=== PATIENT | female | born 1955 | race Caucasian/White ===

== ENCOUNTER 2021-07-19 16:21 | Emergency (ER) | payer MEDICARE, SELFPAY ==
[2021-07-19 16:22] VITALS: BP 118/66; PULSE 109; RESP 15; TEMP 36.9; O2SAT 99; BMI 28.4
--- NOTE | 2021-07-19 16:44 | EDS_ITS ---
HPI History of Present Illness Chief Complaint: General Illness Informant: patient Narrative Narrative: Patient is a 65-year-old female with history of reflux and what sounds like a Niesen fundoplication surgery presenting with headache, lightheadedness, abdominal pain and generalized malaise. Patient states she is been having the symptoms for about 3 weeks and has been worse over the past week. Patient went to [facility] 9 days ago where she had blood work and received 2 L of IV fluids as well as some IV antibiotics. She was discharged home with 10 pills of antibiotics. She believes they are Keflex. She states the antibiotic did not seem to help and really tore her stomach up. Patient states that she vomits every time she eats is concerned she is dehydrated again. Her boss was worried she might have pneumonia and sent home from work to be ev aluated further today. Patient states he has had abdominal discomfort and feels like her stomach is in knots. It is generalized. Patient states has had regular bowel movements and denies any diarrhea, black or blood in her stool. She had a negative COVID test last week. Denies any chest pain or difficulty breathing. No other acute complaints at this time. PFSH PFSH Home Medications glipizide 20 mg PO QHS 07/19/21 [History Last Taken Unknown] lisinopril 10 mg PO QHS 07/19/21 [History Last Taken Unknown] metformin 2,000 mg PO QHS 07/19/21 [History Last Taken Unknown] ondansetron HCl 4 mg PO Q6H PRN #14 tab 07/19/21 [Rx Last Taken Unknown] pioglitazone 30 mg PO QHS 07/19/21 [History Last Taken Unknown] rosuvastatin 20 mg PO QHS 07/19/21 [History Last Taken Unknown] sulfamethoxazole-trimethoprim [Bactrim DS] 1 tab PO BID #14 tab 07/19/21 [Rx Last Taken Unknown] Allergy/AdvReac Type Severity Reaction Status Date / Time No Known Allergies Allergy Verified 07/19/21 16:24 Social History Smoking Status: Never smoker ROS ROS ED Constitutional Constitutional ED: Reports other Details: lightheaded ; Denies chills or fever(s) Eyes Eyes: Denies change in vision ENT ENT ED: Denies rhinorrhea or sore throat Cardiovascular Cardiovascular: Denies chest pain or palpitations Respiratory/Chest Respiratory/Chest: Reports dyspnea; Denies cough Gastrointestinal Gastrointestinal: Reports abdominal pain, nausea and vomiting; Denies constipation, diarrhea or melena Genitourinary Genitourinary ED: Denies dysuria, hematuria or urinary frequency Musculoskeletal Musculoskeletal: Denies arthralgias, myalgias or neck pain Integumentary Denies rash Neurologic Neurologic: Reports headache(s); Denies paresthesias or weakness Psychiatric Psychiatric: Denies anxiety or depression EXAM Physical Exam Const Vital Signs: 07/19/21 16:22 07/19/21 16:33 07/19/21 18:34 Temperature 98.4 F Temperature Source Temporal Pulse Rate 109 H 92 Respiratory Rate 15 16 Respiratory Effort Normal Non-Labored Respiratory Pattern Normal Blood Pressure 118/66 110/59 L Blood Pressure Mean 83 76 Pulse Ox 99 97 Oxygen Delivery Method Room Air Room Air Positive well nourished and well developed General Appearance ED: well developed and NAD HEENT Reports TM's clear and moist mucous membranes Negative for trauma or tenderness Tympanic Membrane ED: Yes TM's clear Eyes PERRL and EOMs intact bilaterally Neck supple and no JVD Neck Narrative: normal ROM, no meningeal signs Chest Wall inspection of chest normal Resp normal respiratory effort and clear to auscultation bilaterally Auscultation: Negative for wheezes Cardio regular rate, regular rhythm and no murmurs GI normal to inspection, nondistended, normoactive bowel sounds Back/Spine no CVA tenderness Extremity normal to inspection General Extremety ED: Negative for edema or tenderness General Extremity: Negative for edema Neuro oriented x3 Sensorium / Orientation: alert Motor Exam: Negative for general weakness Psych mental status grossly normal Skin no rashes or lesions noted and no wounds MDM MDM MDM Narrative Medical decision making narrative: Patient is evaluated for generalized malaise and abdominal discomfort. She has associated nausea. Patient appears nontoxic and in no acute distress. Patient was seen at [facility] 1 week ago for the same complaints. At that time she was discharged on Keflex for UTI as well as Zofran. Hemoglobin is 11.8 which is stable from a week ago as well as a creatinine of 1.86. Urinalysis shows glucose urea as well as 500 leukoesterase, 25-50 white blood cells and 1+ bacteria. Urine culture will be sent. There does not appear to be a culture from her last ER visit. She will be started on Bactrim and given a refill of her Zofran. Patient is given Toradol and IV fluids in the ER. She seems to be feeling better. She is counseled return precautions. After patient was discharged lab resulted a glucose of 594.She had normal anion gap and normal bicarb. Calculated serum osmolality 306. Patient does not meet criteria for DKA or HHNK. While she was discharged for her glucose was resulted this would not have changed to her disposition. Patient is a known diabetic. She was given a liter of fluid which should improve her glucose. Lab Data Attestation: I reviewed the patient's lab results. Labs: Laboratory Results - last 24 hr 07/19/21 07/19/21 07/19/21 17:00 17:00 18:00 WBC 6.3 RBC 4.29 Hgb 11.8 L Hct 36.5 L MCV 85.1 MCH 27.5 MCHC 32.3 RDW Std Deviation 41.5 RDW Coeff of Aung 13.4 Plt Count 291 MPV 11.0 Immature Gran % (Auto) 0.300 Neut % (Auto) 60.2 Lymph % (Auto) 29.7 Mobile % (Auto) 7.4 Eos % (Auto) 1.9 Baso % (Auto) 0.5 Absolute Neuts (auto) 3.8 Absolute Lymphs (auto) 1.88 Nucleated RBC % 0 Sodium 132 L Potassium 4.5 Chloride 96 L Carbon Dioxide 26.0 Anion Gap 10 BUN 24 H Creatinine 1.86 H Estim Creat Clear Calc 23.21 Est GFR (MDRD) Af Amer 35 L Est GFR (MDRD) Non-Af 29 L BUN/Creatinine Ratio 12.9 Glucose 594 H* Calcium 9.7 Total Bilirubin 0.30 AST 15 ALT 29 Alkaline Phosphatase 86 Total Protein 7.8 Albumin 3.8 Globulin 4.0 Albumin/Globulin Ratio 1.0 Lipase 292 Urine Color Yellow Urine Clarity Clear Urine pH 6.0 Ur Specific [place] 1.010 Urine Protein Negative Urine Glucose (UA) 1000 H Urine Ketones Negative Urine Occult Blood Negative Urine Nitrite Negative Urine Bilirubin Negative Urine Urobilinogen Normal Ur Leukocyte Esterase 500 H Urine RBC 0 SEEN Urine WBC 25-50 SEEN Ur Squamous Epith Cells 0-5 SEEN Urine Bacteria 1+ Urine Mucus 0 SEEN Radiography Diagnostic Testing: Clinical Impression(s) from Imaging Studies Chest X-Ray 07/19/21 17:25 IMPRESSION: Minimal medial right basilar atelectasis or fibrosis. Mild biapical pleural thickening. Surgical clips below left hemidiaphragm. Electronically Signed: Fco Whiting MD, DAVIDA at 18:01 EDT Reading Location ID and State: [facility] / [place] Tel , Service support , Discharge Plan Triage Chief Complaint: General Illness ED Provider: Nell Garcia Dx/Rx/DC Orders Clinical Impression: Acute UTI, Malaise and fatigue, Nausea Instructions: ED CYSTITIS Female Adult Prescriptions: New sulfamethoxazole-trimethoprim [Bactrim DS] 800-160 mg tablet 1 tab PO BID Qty: 14 RF: 0 ondansetron HCl 4 mg tablet 4 mg PO Q6H PRN (Reason: nausea and vomiting) Qty: 14 RF: 0 No Action pioglitazone 15 mg tablet 30 mg PO QHS RF: 0 glipizide 10 mg tablet extended release 24hr 20 mg PO QHS RF: 0 lisinopril 10 mg tablet 10 mg PO QHS RF: 0 metformin 500 mg tablet extended release 24 hr 2,000 mg PO QHS RF: 0 rosuvastatin 20 mg tablet 20 mg PO QHS RF: 0 Primary Care Provider: Masha Covington Referrals: Masha Covington PA [Primary Care Provider] - Activity Restrictions/Additional Instructions: Your creatinine today was 1.86 and your hemoglobin is 11.8. Please follow-up with your primary care doctor for these. As you had a negative COVID PCR test last week we do not need to repeat it today. Disposition Disposition: Home, Self Care Discharge Date/Time: 07/19/21 19:27
[2021-07-19 17:12] LABS: Absolute Lymphocyte Count 1.88 X10^3/uL (0.83-4.51); Absolute Neutrophil Count 3.8 X10^3/uL (2.0-7.7); Basophil# 0.03 X10^3/uL; Basophil% 0.5 % (0-1); Eosinophil# 0.12 X10^3/uL; Eosinophils% 1.9 % (0-5); Hematocrit 36.5 % (37-47); Hemoglobin 11.8 g/dL (12.0-15.0); Lymphocyte # 1.88 X10^3/ul (0.83-4.51); Lymphocyte % 29.7 % (19-41); Mean Corp Hgb Conc 32.3 g/dL (32-36); Mean Corpuscular Hgb 27.5 pg (27.0-32.0); Mean Corpuscular Volume 85.1 fL (81-99); Monocyte# 0.47 X10^3/uL; Monocyte% 7.4 % (0-10); NRBC Flagged by Analyzer 0 % (0-5); Neutrophil % 60.2 % (47-70); Platelet Count 291 K/mm3 (150-450); RBC Distribution Width CV 13.4 % (11.6-14.6); RBC Distribution Width SD 41.5 fl (35.1-43.9); Red Blood Count 4.29 M/mm3 (4.2-5.4); White Blood Count 6.3 K/mm3 (4.4-11.0)
[2021-07-19] MEDS: Ketorolac 15 MG/ML Vial IV (17:12)
[2021-07-19] MEDS: 0.9% Normal Saline 1,000 ML 1000 ML IV (17:12)
--- NOTE | 2021-07-19 17:25 | RAD_ITS ---
STUDY: X-RAY CHEST REASON FOR EXAM: Female, 65 years old. shortness of breath TECHNIQUE: Frontal and lateral COMPARISON: None. FINDINGS: The lungs minimal medial right basilar atelectasis or fibrosis. Mild biapical pleural thickening. Normal size heart. Normal mediastinum and sylwia. Normal visualized pulmonary arteries. Normal visualized aortic arch and descending thoracic aorta. Normal visualized thoracic spine. Normal visualized ribs, clavicles, and shoulders. Surgical clips are seen below the left hemidiaphragm. RAD/Chest PA and Lateral IMPRESSION: Minimal medial right basilar atelectasis or fibrosis. Mild biapical pleural thickening. Surgical clips below left hemidiaphragm. Electronically Signed: Fco Whiting MD, DAVIDA at 18:01 EDT ,
[2021-07-19 17:28] LABS: AST(SGOT) 15 U/L (15-37); Alanine Aminotransfer ALT/SGPT 29 U/L (13-56); Albumin, Serum 3.8 g/dL (3.2-5.0); Alkaline Phosphatase 86 U/L (45-117); Anion Gap 10 (5-15); BUN 24 mg/dL (7-18); BUN/Creat Ratio 12.9 RATIO (10-20); Calcium,Total 9.7 mg/dL (8.5-10.1); Chloride 96 mmol/L (98-107); Creatinine, Serum 1.86 mg/dL (0.55-1.02); EST Glomerular Filtration Rate 29 mL/min (>60); Est Glom Filt Rate - Afr Amer 35 mL/min (>60); Estimated Creatinine Clearance 23.21 ml/min; Lipase 292 U/L (73-393); Potassium 4.5 mmol/L (3.5-5.1); Protein, Total 7.8 g/dL (6.4-8.2); Sodium Level 132 mmol/L (136-145)
[2021-07-19 18:10] LABS: Mucous, Urine 0 SEEN /hpf (<or=2+); Red Blood Cells-Urine 0 SEEN /hpf (0-5)
[2021-07-19 18:11] LABS: Color, Urine Yellow (Yellow); Glucose, Dipstick 1000 mg/dl (Normal); Ketone-Dipstick Negative (Negative); Leukocyte Esterase-Dipstick 500 /ul (Negative); Nitrite-Dipstick Negative (Negative); Occult Blood-Urine Negative /ul (Negative); Protein-Dipstick Negative (Negative); Urine Bilirubin Dipstick Negative (Negative); Urine Clarity Clear (Clear); Urine Urobilinogen Normal (Normal)
[2021-07-19 18:34] VITALS: BP 110/59; PULSE 92; RESP 16; O2SAT 97
[2021-07-19 18:37] LABS: Bacteria 1+ /hpf (None Seen); Squamous Epithelial Cells - UA 0-5 SEEN /hpf (5-10); White Blood Cells 25-50 SEEN /hpf (0-5)
[2021-07-19] MEDS: Smz/Tmp Ds Tablet 1 TABLET PO (19:16)
[2021-07-19] MEDS: Ondansetron ODT 4 MG Tablet PO (19:17)
[2021-07-19 20:00] LABS: Glucose 594 mg/dL (74-106)
== END 2021-07-19 19:27 | disposition home or self-care (01) ==
PROVIDERS: Emergency Provider Emergency Medicine; PCP Physician Assistant; Visit Provider Emergency Medicine
DX: N39.0 Urinary tract infection, site not specified (principal); E11.9 Type 2 diabetes mellitus without complications; R53.83 Other fatigue; Z79.84 Long term (current) use of oral hypoglycemic drugs
CPT/HCPCS: 71046; 80053; 81001; 83690; 85025; 87086; 87088; 99284; J7030

== ENCOUNTER → 2022-10-22 | Outpatient (CLI) | payer MEDICARE, SELFPAY ==
[2022-10-22 11:55] LABS: ALB/GLOB Ratio 0.9 RATIO (0.9-2.4); AST(SGOT) 14 U/L (15-37); Alanine Aminotransfer ALT/SGPT 26 U/L (13-56); Albumin, Serum 3.8 g/dL (3.2-5.0); Alkaline Phosphatase 113 U/L (45-117); Anion Gap 9 (5-15); BUN 14 mg/dL (7-18); BUN/Creat Ratio 12.6 RATIO (10-20); Calcium,Total 9.4 mg/dL (8.5-10.1); Chloride 96 mmol/L (98-107); Cholesterol 239 mg/dL (200); Creatinine, Serum 1.11 mg/dL (0.55-1.02); EST Glomerular Filtration Rate 52 mL/min (>60); Est Glom Filt Rate - Afr Amer 63 mL/min (>60); Globulin 4.3 g/dL (2.2-4.2); Glucose 426 mg/dL (74-106); High Density Lipoprotein 59 mg/dL; Potassium 4.1 mmol/L (3.5-5.1); Protein, Total 8.1 g/dL (6.4-8.2); Sodium Level 130 mmol/L (136-145); Thyroid Stim Hormone (TSH) 0.95 uIU/mL (0.358-3.74); Triglycerides 367 mg/dL; Very Low Density Lipoprotein 73 mg/dL (5-40)
[2022-10-22 12:45] LABS: Microalbumin,Random Urine < 5.0 mg/L (NO RANGE EST.)
== END | disposition home or self-care (01) ==
LOC: LAB 10:49
PROVIDERS: PCP Physician Assistant; Referring Provider Nurse Practitioner Family; Visit Provider Nurse Practitioner Family
DX: E11.9 Type 2 diabetes mellitus without complications (principal)
CPT/HCPCS: 36415; 80053; 80061; 82043; 82570; 84443